=== PATIENT | male | born 1970 | race American Indian/Alaskan Native ===

== ENCOUNTER 2016-07-16 11:18 | Emergency (ER) | payer BC ==
--- NOTE | 2016-07-16 13:56 | Emergency Department Report ---
Chief Complaint: Dizziness Stated Complaint: JOINT PAIN/LIGHT HEADED Time Seen by Provider: 07/16/16 13:55 - HPI History of Present Illness: Patient here complaining of weight loss of 30 pounds since November/2015. He is also complaining episode of dizziness off and on for a few months. He reports cramping pain to her inner thighs off and on. This is been going on for a few months. He said he is aching all over for a few months. Denies CP or shortness of breath. Denies any nausea or vomiting. Pain is 3 out of 10 and feels achy. Denies any blurred vision. Denies any headache. Denies any history of medical problems. - ROS Review of Systems: All systems are negative unless stated in HPI above. - Exam Vital Signs: Vital Signs 07/16/16 13:28 Temperature 97.9 F Pulse Rate 64 Respiratory 18 Rate Blood Pressure 118/78 O2 Sat by Pulse 98 Oximetry Physical Exam: GEN: This is a 45-year-old male well-nourished well-developed in no acute distress. CV: S1, S2. Regular rate and rhythm. Lungs: Clear to auscultate bilaterally, no rhonchi wheezes or rales. mini-Neuro: GCS of 15, alert and oriented 3. Normal gait, negative Romberg and negative pronator drift. Speech is clear and fluid. MSE screening note: Focused history and physical exam performed. Due to findings the following was ordered:see mdm ED Medical Decision Making - Medical Decision Making Medical decision making: Patient seen by provider in triage area. Appropriate protocol activated and patient to main ED to be seen by physician. ED Disposition for MSE Condition: Stable
[2016-07-16 14:37] LABS: Basophils % (Auto) 1.1 % (0.0-1.8); Eosinophils % (Auto) 1.6 % (0.0-4.3); Hematocrit 42.1 % (35.5-45.6); Hemoglobin 14.3 gm/dl (11.8-15.2); Mean Corpuscular HGB Conc 34 % (32-34); Mean Corpuscular Hemoglobin 28 pg (28-32); Mean Corpuscular Volume 83 fl (84-94); Platelet Count 298 K/mm3 (140-440); Red Blood Count 5.08 M/mm3 (3.65-5.03); Red Cell Distribution Width 14.6 % (13.2-15.2); White Blood Count 4.6 K/mm3 (4.5-11.0)
[2016-07-16 14:59] LABS: Creatine Kinase MB 3.1 ng/mL (0.0-4.0)
[2016-07-16 15:00] LABS: Alanine Aminotransferase 12 units/L (7-56); Albumin 4.1 g/dL (3.9-5); Albumin/Globulin Ratio 1.5 %; Alkaline Phosphatase 41 units/L (35-129); Anion Gap 16 mmol/L; Bilirubin,Total 0.7 mg/dL (0.1-1.2); Blood Urea Nitrogen 9 mg/dL (9-20); Carbon Dioxide 26 mmol/L (22-30); Chloride 102.7 mmol/L (98-107); Creatine Kinase 333 units/L (55-170); Glucose 85 mg/dL (75-100); Potassium 4.5 mmol/L (3.6-5.0); Sodium 140 mmol/L (137-145); Total Protein 6.8 g/dL (6.3-8.2)
[2016-07-16 15:08] LABS: Alanine Aminotransferase 12 units/L (7-56); Albumin 4.1 g/dL (3.9-5); Albumin/Globulin Ratio 1.5 %; Alkaline Phosphatase 41 units/L (35-129); Bilirubin,Total 0.7 mg/dL (0.1-1.2); Magnesium 2.1 mg/dL (1.7-2.3); Total Protein 6.9 g/dL (6.3-8.2)
[2016-07-16 15:24] LABS: Bilirubin,Direct < 0.2 mg/dL (0-0.2); Bilirubin,Indirect 0.5 mg/dL
[2016-07-16 16:17] LABS: Bilirubin,Urine NEG (Negative); Blood,Urine NEG (Negative); Ketones,Urine 20 mg/dL (Negative); Leukocyte Esterase,Urine NEG (Negative); Mucus,Urine 3+ /HPF; Nitrite,Urine NEG (Negative); Protein,Urine <15 mg/dL mg/dL (Negative); WBC,Urine < 1.0 /HPF (0.0-6.0)
[2016-07-16 23:57] VITALS: BP 117/70
--- NOTE | 2016-07-17 00:22 | Emergency Department Report ---
HPI - General Chief Complaint: Dizziness Time Seen by Provider: 07/16/16 13:55 - HPI HPI: The patient's 45-year-old male who presents for evaluation of lightheadedness. The patient reports on of lightheadedness for the past one month, severe this morning, nearly 12 hours prior to my evaluation, is exacerbated with standing up from a seated position and bending over, and relieved with lying flat and rest. The patient denies fever, headache, neck pain, paresthesias, focal motor weakness, blurry vision, ear pain, tinnitus, chest pain, hemoptysis, dyspnea, abdominal pain, confusion or altered mental status, or recent URI or diarrhea. ED Past Medical Hx - Past Medical History Previous Medical History?: No - Surgical History Past Surgical History?: No - Social History Smoking Status: Never Smoker Substance Use Type: None - Medications Home Medications: Home Medications Medication Instructions Recorded Confirmed Last Taken Type No Known Home Medications [No 07/16/16 07/16/16 Unknown History Reported Home Medications] ED Review of Systems ROS: Stated complaint: JOINT PAIN/LIGHT HEADED Other details as noted in HPI Constitutional: denies: fever; reports dizziness ENT: denies: throat or neck pain Respiratory: denies: cough, shortness of breath Cardiovascular: denies: chest pain Endocrine: denies unexplained weight loss or gain Gastrointestinal: denies: abdominal pain, nausea Genitourinary: denies: dysuria Musculoskeletal: denies: leg swelling Skin: denies: rash Neurological: denies: headache Hematological/Lymphatic: denies: easy bleeding or easy bruising Psych: denies sadness or hopelessness Physical Exam - Physical Exam Vital Signs: Vital Signs 07/16/16 07/16/16 13:28 23:54 Temperature 97.9 F 98.5 F Pulse Rate 64 48 L Respiratory 18 12 Rate Blood Pressure 118/78 Blood Pressure 117/70 [Left] O2 Sat by Pulse 98 100 Oximetry Physical Exam: General: well-nourished, well-developed, no acute distress Head: Normocephalic, atraumatic Eyes: normal sclera, EOMI, PERRL ENT: Mucous membranes are pale and dry Neck: No neck stiffness, no cervical adenopathy Respiratory: Breath sounds equal bilaterally, no wheezing, rales, or rhonchi Cardio: S1 and S2 present, no murmurs, rubs, gallops, capillary refill is delayed Abdomen: Normoactive bowel sounds, soft abdomen, no rigidity, no guarding or rebound tenderness Musc: No pitting edema Skin: No rash Neuro: no facial drooping, normal speech, alert and oriented, no sensation or motor deficit in the arms or legs, reflexes 2+ and symmetric on DTR testing, no coordination deficit with finger to nose testing, no obvious gross neuro deficits Psych: Normal affect ED Course Vital Signs 07/16/16 07/16/16 13:28 23:54 Temperature 97.9 F 98.5 F Pulse Rate 64 48 L Respiratory 18 12 Rate Blood Pressure 118/78 Blood Pressure 117/70 [Left] O2 Sat by Pulse 98 100 Oximetry ED Medical Decision Making - Lab Data Result diagrams: 07/16/16 14:16 07/16/16 14:16 - Medical Decision Making The patient was seen and examined by myself. The patient is placed on a social economist and continuous pulse ox. On initial evaluation, the patient was found to be in no distress. Evaluation orders were placed. The patient was offered IV fluids for treatment of dehydration and he declined. Lab results are unremarkable. The patient was reevaluated and reported that their symptoms were markedly improved. The patient is stable for discharge with outpatient follow-up. The patient is given follow-up and return instructions. The patient expressed understanding and agreed with the plan. The patient is discharged in stable condition. Critical care attestation.: If time is entered above; I have spent that time in minutes in the direct care of this critically ill patient, excluding procedure time. ED Disposition Clinical Impression: Orthostatic dizziness, Dehydration Disposition: DISCHARGED TO HOME OR SELFCARE Is pt being admited?: No Does the pt Need Aspirin: No Condition: Stable Instructions: Dehydration (ED), Dizziness (ED) Referrals: PRIMARY CARE, [Primary Care Provider] - 3-5 Days Time of Disposition: 00:09
== END 2016-07-17 00:48 | disposition home or self-care (01) ==
LOC: ED 11:18
DX: R42 Dizziness and giddiness (principal); E86.0 Dehydration
CPT/HCPCS: 36415; 80048; 80053; 80074; 81001; 82010; 82550; 82553; 82962; 83735; 84484; 85025; 93005; 93010; 99284